=== PATIENT | female | born 1970 | race Caucasian/White ===

== ENCOUNTER 2017-07-16 23:04 | Emergency (ER) | payer SELFPAY ==
[~2017-07-16] VITALS: Ht 152.4 cm; Wt 75.0 kg
[~2017-07-16 23:04] MED LIST: GLYB5TAB3; METF500T3; PRA40
[2017-07-16 23:10] VITALS: Ht 152.4 cm; Wt 75.0 kg
[2017-07-16 23:36] VITALS: BP 121/71; PULSE 92; RESP 20; TEMP 98.2
[2017-07-17] MEDS ORDERED: IBUPROFEN 800 MG TAB PO ONE (00:30)
--- NOTE | 2017-07-17 00:35 | RADRPT ---
PROCEDURE: XR Chest. CLINICAL INDICATION: Shortness of breath. TECHNIQUE: Single frontal chest x-ray. COMPARISON: 07/27/2009 FINDINGS: The cardiomediastinal silhouette is unremarkable. There is no congestive heart failure.. No focal i nfiltrate is seen. There is no pleural effusion. There is no pneumothorax. The osseous structures are unremarkable. IMPRESSION: 1. No active disease. RPTAT: [facility] .Mark Anthony Hand MD, MD Date Time Electronically viewed and signed by .Mark Anthony Hand MD, on 07/17/2017 00:34 .K/
[2017-07-17] MEDS ORDERED: IBUP-1542 PO (00:42)
--- NOTE | 2017-07-17 00:46 | ERD ---
ER Documentation Chief Complaint Date/Time DATE: 07/17/17 TIME: 00:46 Chief Complaint feels that her heart is racing & sometimes she's SOB [id number],stable x now HPI Patient is a 46-year-old female with hypertension and diabetes who presents with palpitations. She feels palpitations in the middle of her chest which started 18 days ago. She said that it started after she was drinking beer. She does not usually drink beer. She said the palpitations were worse today. She has a midsternal chest pain. She has had no treatment. For the pain. Upon review of old medical records this is the patient's fourth visit to the ER since 2008. Her primary doctor is Dr. Salgado. ROS All systems reviewed and are negative except as per history of present illness. Medications Home Meds Active Scripts Ibuprofen* (Motrin*) 600 Mg Tab, 600 MG PO Q8, #30 TAB Prov:LC AUGUSTE MD 07/17/17 Reported Medications Metformin* (Glucophage* XR) 500 Mg Tab.sr.24h 05/09/11 Pravastatin Sodium* (Pravachol*) 40 Mg Tablet 09/03/10 Glyburide* (Glyburide*) 5 Mg Tablet 09/03/10 Allergies Allergies: Coded Allergies: Penicillins (Verified Allergy, Mild, 05/09/11) PMhx/Soc Medical and Surgical Hx: pt denies Surgical Hx History of Surgery: No Anesthesia Reaction: No Hx Neurological Disorder: No Hx Respiratory Disorders: No Hx Cardiac Disorders: Yes (diabetes and htn ) Hx Psychiatric Problems: No Hx Miscellaneous Medical Probl: No Hx Alcohol Use: No Hx Substance Use: No Hx Tobacco Use: No Smoking Status: Never smoker FmHx Family History: coronary disease Physical Exam Vitals Vital Signs Date Time Temp Pulse Resp B/P Pulse Ox O2 Delivery O2 Flow Rate FiO2 07/16/17 23:36 98.2 92 20 121/71 98 07/16/17 23:10 99.3 90 20 117/86 98 Physical Exam Const: No acute distress Head: Atraumatic Eyes: Normal Conjunctiva ENT: Normal External Ears, Nose and Mouth. Neck: Full range of motion..~ No meningismus. Resp: Clear to auscultation bilaterally Cardio: Regular rate and rhythm, no murmurs Abd: Soft, non tender, non distended. Normal bowel sounds Skin: No petechiae or rashes Back: No midline or flank tenderness Ext: No cyanosis, or edema Neur: Awake and alert Psych: Normal Mood and Affect Results 24 hrs Current Medications Medications (Trade) Dose Ordered Sig/Primitivo Route PRN Reason Start Time Stop Time Status Last Admin Dose Admin Ibuprofen (Motrin) 800 mg ONCE ONCE PO 07/17/17 00:30 07/17/17 00:31 DC 07/17/17 00:17 Procedures/MDM EKG read by me: Rate/Rhythm: Regular rate and rhythm at a rate of 85 Intervals: Normal Impression: No evidence of ischemia or arrhythmia Chest x-ray negative per radiology Patient is a 46-year-old female with hypertension and diabetes who presents with palpitations. Her EKG is normal and shows no signs of arrhythmia or ischemia. Her chest x-ray shows no pneumonia or pneumothorax. At this point I doubt acute coronary syndrome, pneumonia, pneumothorax, pulmonary embolism, or aortic dissection. I believe outpatient management is appropriate. She felt better after receiving ibuprofen and said "I want to go home now". The patient will be discharged home but will need close follow-up with her primary doctor within 24-48 hours. She can return sooner for any worsening symptoms. Departure Diagnosis: Primary Impression: Chest pain Chest pain type: unspecified Qualified Code: R07.9 - Chest pain, unspecified type Additional Impression: Palpitations Condition: Fair Patient Instructions: Chest Pain, Uncertain Cause, Palpitations Referrals: FAMILIA SALGADO MD Additional Instructions: Llame al doctor EMEKA y bya francois MICHELE PARA DENTRO DE 1-2 DONALD.Dgale a la secretaria que nosotros le instruimos hacer esta michele.Avise o llame si marie condicin se empeora antes de la michele. Regresa aqui si peor o no mejor. LC AUGUSTE MD Jul 17, 2017 00:46
== END 2017-07-17 00:48 | disposition home or self-care (01) ==
LOC: E/R 23:04
DX: R07.9 Chest pain, unspecified (principal); I10 Essential (primary) hypertension; E11.9 Type 2 diabetes mellitus without complications; Z79.84 Long term (current) use of oral hypoglycemic drugs
CPT/HCPCS: 71010; 93005

== ENCOUNTER 2018-08-30 14:18 | Emergency (ER) | END 2018-08-30 18:21 | disposition home or self-care (01) ==